=== PATIENT | female | born 1980 | race Caucasian/White ===

== ENCOUNTER 2018-12-07 18:20 | Emergency (ER) | payer MEDICAID ==
[2018-12-07] MEDS ORDERED: Aspirin 81 MG Tab.Chew PO ONE (18:22)
[2018-12-07] MEDS ORDERED: Sodium Chloride 0.9% 10 ML Syringe FLUSH PRN (18:22)
[2018-12-07] MEDS ORDERED: Sodium Chloride 0.9% 2.5 ML Syringe FLUSH PRN (18:22)
[2018-12-07] MEDS ORDERED: Ketorolac 30 MG/ML SDV IVPUSH ONE (18:26)
--- NOTE | 2018-12-07 18:29 | EDM.PDOC ---
ED HPI GENERAL MEDICAL PROBLEM - General Chief Complaint: Chest Pain Stated Complaint: CHEST PAIN Time Seen by Provider: 12/07/18 18:22 Source of Information: Reports: Patient History Limitations: Reports: No Limitations - History of Present Illness INITIAL COMMENTS - FREE TEXT/NARRATIVE: HISTORY AND PHYSICAL: History of present illness: Patient is a 38-year-old female who presents to the emergency room today with complaints of chest pain which started Sunday morning. She states for the past one week she has been coughing and recently was placed on Augmentin and dexamethasone for bronchitis. She is currently still taking these medications. Sunday morning she started to have some chest pain which was exacerbated with movement and coughing. Over the past 24 hours that has progressively gotten worse and more painful. Patient denies any fever, chills, headache, change in vision, syncope or near syncope. Denies any back pain or shortness of breath. Denies any abdominal pain, nausea, vomiting, diarrhea, constipation or dysuria. Has not noted any blood in urine or stool. Patient has been eating and drinking appropriately. Review of systems: As per history of present illness and below otherwise all systems reviewed and negative. Past medical history: As per history of present illness and as reviewed below otherwise noncontributory. Surgical history: As per history of present illness and as reviewed below otherwise noncontributory. Social history: See social history for further information Family history: As per history of present illness and as reviewed below otherwise noncontributory. Physical exam: General: Well-developed and well-nourished 38-year-old female. Alert and oriented. Nontoxic appearing and in no acute distress. HEENT: Atraumatic, normocephalic, pupils equal and reactive bilaterally, negative for conjunctival pallor or scleral icterus, mucous membranes moist, trachea midline. No drooling or trismus noted. No meningeal signs. No hot potato voice noted. Lungs: Clear to auscultation, breath sounds equal bilaterally, mildly tenderness with palpation to the mid sternum/anterior chest Heart: S1S2, regular rate and rhythm without overt murmur Abdomen: Soft, nondistended, nontender. Negative for masses or hepatosplenomegaly. Negative for costovertebral tenderness. Skin: Intact, warm, dry. No lesions or rashes noted. Extremities: Atraumatic, moves all extremities per self without difficulty or deficits, negative for cords or calf pain. Neurovascular unremarkable. Neuro: Awake, alert, oriented. Cranial nerves II through XII unremarkable. Cerebellum unremarkable. Motor and sensory unremarkable throughout. Exam nonfocal. Notes: Patient reports that she does have improvement after the Toradol IV. Vital signs remain stable. EKG shows a normal sinus rhythm with a rate of 81. Patient does have a leukocytosis with UTI. She is currently on any oral steroid of the past couple days. Other than her complaint of cough she has no other systemic complaints or concerns today. The urinary tract infection was an incidental finding. We'll give her a dose of Rocephin while here. Supportive care measures were reviewed and discussed. Voices understanding and is agreeable to plan of care. Denies any further questions or concerns at this time. Diagnostics: CBC, CMP, EKG, one view chest, troponin, UA, urine Therapeutics: Aspirin, Toradol Prescription: Phenergan with codeine (#4oz) Impression: Chest pain, atypical UTI Plan: 1. Continue taking your medications as prescribed. 2. Phenergan with codeine as needed for cough. This medication may cause drowsiness a do not take it will driving her needing to be functioning outside of the house. I would take Aleve or ibuprofen routinely over the next few days. Please take this medication with food as it can cause stomach upset. 3. Follow-up with your primary care provider as we discussed. Return to the ED as needed and as discussed. Definitive disposition and diagnosis as appropriate pending reevaluation and review of above. Chest Pain Score (Numeric/FACES): 9 - Related Data Allergies Allergy/AdvReac Type Severity Reaction Status Date / Time Sulfa (Sulfonamide Allergy Rash Verified 12/07/18 18:27 Antibiotics) Home Meds: Home Meds Amoxicillin/Clavulanate K [Augmentin 875-125 MG] 1 tab PO DAILY 12/07/18 [ History] dexAMETHasone [Dexamethasone] 4 mg PO DAILY 12/07/18 [History] ED ROS GENERAL - Review of Systems Review Of Systems: ROS reveals no pertinent complaints other than HPI. ED EXAM, GENERAL - Physical Exam Exam: See Below (See dictation) Course - Vital Signs Last Recorded V/S: Last Vital Signs Temp 98.2 F 12/07/18 18:28 Pulse 92 12/07/18 18:28 Resp 18 12/07/18 18:28 BP 154/94 H 12/07/18 18:28 Pulse Ox 95 12/07/18 18:28 - Orders/Labs/Meds Orders: Active Orders 24 hr Category Date Time Status EKG Documentation Completion [RC] STAT Care 12/07/18 18:22 Active CULTURE URINE [RM] Stat Lab 12/07/18 18:35 Received Sodium Chloride 0.9% [Saline Flush] Med 12/07/18 18:22 Active 10 ml FLUSH ASDIRECTED PRN Sodium Chloride 0.9% [Saline Flush] Med 12/07/18 18:22 Active 2.5 ml FLUSH ASDIRECTED PRN Saline Lock Insert [OM.PC] Stat Oth 12/07/18 18:22 Ordered Medication Orders Sodium Chloride (Saline Flush) 10 ml FLUSH ASDIRECTED PRN PRN Reason: Keep Vein Open Last Admin: 12/07/18 18:58 Dose: 10 ml Sodium Chloride (Saline Flush) 2.5 ml FLUSH ASDIRECTED PRN PRN Reason: Keep Vein Open Last Admin: 12/07/18 18:58 Dose: 2.5 ml Labs: Laboratory Tests 12/07/18 12/07/18 12/07/18 Range/Units 18:05 18:25 18:35 WBC 24.08 H (4.0-11.0) K/uL RBC 5.11 (4.30-5.90) M/uL Hgb 15.3 (12.0-16.0) g/dL Hct 45.6 (36.0-46.0) % MCV 89.2 (80.0-98.0) fL MCH 29.9 (27.0-32.0) pg MCHC 33.6 (31.0-37.0) g/dL RDW Std Deviation 45.1 (28.0-62.0) fl RDW Coeff of Lindy 14 (11.0-15.0) % Plt Count 426 H (150-400) K/uL MPV 11.20 (7.40-12.00) fL Neut % (Auto) 86.3 H (48.0-80.0) % Lymph % (Auto) 7.8 L (16.0-40.0) % [place] % (Auto) 5.6 (0.0-15.0) % Eos % (Auto) 0.2 (0.0-7.0) % Baso % (Auto) 0.1 (0.0-1.5) % Neut # (Auto) 20.8 H (1.4-5.7) K/uL Lymph # (Auto) 1.9 (0.6-2.4) K/uL [place] # (Auto) 1.3 H (0.0-0.8) K/uL Eos # (Auto) 0.1 (0.0-0.7) K/uL Baso # (Auto) 0.0 (0.0-0.1) K/uL Nucleated RBC % 0.0 /100WBC Nucleated RBCs # 0 K/uL Sodium 139 (136-145) mmol/L Potassium 4.1 (3.5-5.1) mmol/L Chloride 104 (98-107) mmol/L Carbon Dioxide 25.4 (21.0-32.0) mmol/L BUN 18 (7.0-18.0) mg/dL Creatinine 0.7 (0.6-1.0) mg/dL Est Cr Clr Drug Dosing 101.01 mL/min Estimated GFR (MDRD) > 60.0 ml/min Glucose 137 H (74-106) mg/dL Calcium 9.4 (8.5-10.1) mg/dL Total Bilirubin 0.5 (0.2-1.0) mg/dL AST 32 (15-37) IU/L ALT 51 (14-63) IU/L Alkaline Phosphatase 64 (46-116) U/L Troponin I < 0.050 (0.000-0.056) ng/mL Total Protein 7.6 (6.4-8.2) g/dL Albumin 3.9 (3.4-5.0) g/dL Globulin 3.7 (2.6-4.0) g/dL Albumin/Globulin Ratio 1.1 (0.9-1.6) Urine Color YELLOW Urine Appearance CLEAR Urine pH 6.0 (5.0-8.0) Ur Specific [place] 1.025 (1.001-1.035) Urine Protein NEGATIVE (NEGATIVE) mg/dL Urine Glucose (UA) NEGATIVE (NEGATIVE) mg/dL Urine Ketones NEGATIVE (NEGATIVE) mg/dL Urine Occult Blood MODERATE H (NEGATIVE) Urine Nitrite NEGATIVE (NEGATIVE) Urine Bilirubin SMALL H (NEGATIVE) Urine Ictotest NEGATIVE Urine Urobilinogen 1.0 (<2.0) EU/dL Ur Leukocyte Esterase SMALL H (NEGATIVE) Urine RBC 2-3 (0-2/HPF) Urine WBC 8-10 (0-5/HPF) Ur Epithelial Cells MODERATE (NONE-FEW) Urine Bacteria 1+ H (NEGATIVE) Urine HCG, Qual (NEGATIVE) 12/07/18 Range/Units 18:35 WBC (4.0-11.0) K/uL RBC (4.30-5.90) M/uL Hgb (12.0-16.0) g/dL Hct (36.0-46.0) % MCV (80.0-98.0) fL MCH (27.0-32.0) pg MCHC (31.0-37.0) g/dL RDW Std Deviation (28.0-62.0) fl RDW Coeff of Lindy (11.0-15.0) % Plt Count (150-400) K/uL MPV (7.40-12.00) fL Neut % (Auto) (48.0-80.0) % Lymph % (Auto) (16.0-40.0) % [place] % (Auto) (0.0-15.0) % Eos % (Auto) (0.0-7.0) % Baso % (Auto) (0.0-1.5) % Neut # (Auto) (1.4-5.7) K/uL Lymph # (Auto) (0.6-2.4) K/uL [place] # (Auto) (0.0-0.8) K/uL Eos # (Auto) (0.0-0.7) K/uL Baso # (Auto) (0.0-0.1) K/uL Nucleated RBC % /100WBC Nucleated RBCs # K/uL Sodium (136-145) mmol/L Potassium (3.5-5.1) mmol/L Chloride (98-107) mmol/L Carbon Dioxide (21.0-32.0) mmol/L BUN (7.0-18.0) mg/dL Creatinine (0.6-1.0) mg/dL Est Cr Clr Drug Dosing mL/min Estimated GFR (MDRD) ml/min Glucose (74-106) mg/dL Calcium (8.5-10.1) mg/dL Total Bilirubin (0.2-1.0) mg/dL AST (15-37) IU/L ALT (14-63) IU/L Alkaline Phosphatase (46-116) U/L Troponin I (0.000-0.056) ng/mL Total Protein (6.4-8.2) g/dL Albumin (3.4-5.0) g/dL Globulin (2.6-4.0) g/dL Albumin/Globulin Ratio (0.9-1.6) Urine Color Urine Appearance Urine pH (5.0-8.0) Ur Specific [place] (1.001-1.035) Urine Protein (NEGATIVE) mg/dL Urine Glucose (UA) (NEGATIVE) mg/dL Urine Ketones (NEGATIVE) mg/dL Urine Occult Blood (NEGATIVE) Urine Nitrite (NEGATIVE) Urine Bilirubin (NEGATIVE) Urine Ictotest Urine Urobilinogen (<2.0) EU/dL Ur Leukocyte Esterase (NEGATIVE) Urine RBC (0-2/HPF) Urine WBC (0-5/HPF) Ur Epithelial Cells (NONE-FEW) Urine Bacteria (NEGATIVE) Urine HCG, Qual NEGATIVE (NEGATIVE) Meds: Medications Generic Name Dose Route Start Last Admin Trade Name Frehossein PRN Reason Stop Dose Admin Sodium Chloride 10 ml 12/07/18 18:22 12/07/18 18:58 Saline Flush FLUSH 10 ml ASDIRECTED PRN Administration Keep Vein Open Sodium Chloride 2.5 ml 12/07/18 18:22 12/07/18 18:58 Saline Flush FLUSH 2.5 ml ASDIRECTED PRN Administration Keep Vein Open Discontinued Medications Generic Name Dose Route Start Last Admin Trade Name Freq PRN Reason Stop Dose Admin Aspirin 324 mg 12/07/18 18:22 12/07/18 18:54 Aspirin PO 12/07/18 18:23 324 mg ONETIME ONE Administration Ceftriaxone Sodium/Dextrose 1 50 mls @ 100 mls/hr 12/07/18 19:49 12/07/18 20: 00 gm/ Premix IV 12/07/18 20:18 100 mls/hr ONETIME ONE Administration Ketorolac Tromethamine 30 mg 12/07/18 18:26 12/07/18 18:56 Toradol IVPUSH 12/07/18 18:27 30 mg ONETIME ONE Administration Promethazine HCl/Codeine 5 ml 12/07/18 19:51 12/07/18 20:07 Phenergan With Codeine PO 12/07/18 19:52 5 ml NOW STA Administration Departure - Departure Time of Disposition: 19:52 Disposition: Home, Self-Care 01 Clinical Impression: Chest pain Qualifiers: Chest pain type: unspecified Qualified Code(s): R07.9 - Chest pain, unspecified UTI (urinary tract infection) Qualifiers: Urinary tract infection type: acute cystitis Hematuria presence: with hematuria Qualified Code(s): N30.01 - Acute cystitis with hematuria Instructions: Nonspecific Chest Pain, [id number] Referrals: PCP,Unknown [Primary Care Provider] - Forms: ED Department Discharge Additional Instructions: The following information is given to patients seen in the emergency department who are being discharged to home. This information is to outline your options for follow-up care. We provide all patients seen in our emergency department with a follow-up referral. The need for follow-up, as well as the timing and circumstances, are variable depending upon the specifics of your emergency department visit. If you don't have a primary care physician on staff, we will provide you with a referral. We always advise you to contact your personal physician following an emergency department visit to inform them of the circumstance of the visit and for follow-up with them and/or the need for any referrals to a consulting specialist. The emergency department will also refer you to a specialist when appropriate. This referral assures that you have the opportunity for follow-up care with a specialist. All of these measure are taken in an effort to provide you with optimal care, which includes your follow-up. Under all circumstances we always encourage you to contact your private physician who remains a resource for coordinating your care. When calling for follow-up care, please make the office aware that this follow-up is from your recent emergency room visit. If for any reason you are refused follow-up, please contact the [facility] Emergency Department at and asked to speak to the emergency department charge nurse. [facility] Primary Care [address] [place] [id number] [facility] [address] [place] [address] 1. Continue taking your medications as prescribed. 2. Phenergan with codeine as needed for cough. This medication may cause drowsiness a do not take it will driving her needing to be functioning outside of the house. I would take Aleve or ibuprofen routinely over the next few days. Please take this medication with food as it can cause stomach upset. 3. Follow-up with your primary care provider as we discussed. Return to the ED as needed and as discussed. - My Orders Last 24 Hours: My Active Orders 12/07/18 18:22 EKG Documentation Completion [RC] STAT Sodium Chloride 0.9% [Saline Flush] 10 ml FLUSH ASDIRECTED PRN Sodium Chloride 0.9% [Saline Flush] 2.5 ml FLUSH ASDIRECTED PRN Saline Lock Insert [OM.PC] Stat 12/07/18 18:35 CULTURE URINE [RM] Stat - Assessment/Plan Last 24 Hours: My Active Orders 12/07/18 18:22 EKG Documentation Completion [RC] STAT Sodium Chloride 0.9% [Saline Flush] 10 ml FLUSH ASDIRECTED PRN Sodium Chloride 0.9% [Saline Flush] 2.5 ml FLUSH ASDIRECTED PRN Saline Lock Insert [OM.PC] Stat 12/07/18 18:35 CULTURE URINE [RM] Stat
[2018-12-07 19:01] LABS: CHLORIDE,CL 104 mmol/L (98-107); SODIUM,NA 139 mmol/L (136-145)
--- NOTE | 2018-12-07 19:20 | CR ---
INDICATION: Chest pain COMPARISON: None available. FINDINGS: An erect single view of the chest was obtained at 1845 hours. The lungs are clear. No focal or diffuse infiltrates are present. The heart is normal in size. The mediastinum is normal in appearance. The osseous structures are normal in appearance for the patient`s age. IMPRESSION: Normal chest single view. Dictated by Solo Levy MD @ Dec 07 2018 7:18PM Signed by Dr. Solo Levy @ Dec 07 2018 7:19PM
[2018-12-07] MEDS ORDERED: cefTRIAXone 1 GM in Premix Bag 1 BAG IV ONE (19:49)
[2018-12-07] MEDS ORDERED: Codeine/Promethazine 10-6.25 MG/5 ML Syrup 5 ML UD Cup PO STA (19:51)
== END 2018-12-07 20:34 | disposition home or self-care (01) ==
LOC: MW.ED 18:20
DX: R07.89 Other chest pain (principal); N30.01 Acute cystitis with hematuria; Z88.2 Allergy status to sulfonamides
CPT/HCPCS: 71045; 80053; 81001; 81025; 84484; 85025; 87086; 93005; 96365; 96375; 99285; A4217; A9270; J0696; J1885

== ENCOUNTER 2019-05-19 02:26 | Emergency (ER) | payer MEDICAID ==
--- NOTE | 2019-05-19 03:48 | EDM.PDOC ---
ED HPI GENERAL MEDICAL PROBLEM - General Chief Complaint: Abdominal Pain Stated Complaint: RIGHT SIDE PAIN- RADIATING TO BACK Time Seen by Provider: 05/19/19 03:19 Source of Information: Reports: Patient, RN Notes Reviewed History Limitations: Reports: No Limitations - History of Present Illness INITIAL COMMENTS - FREE TEXT/NARRATIVE: -38 year-old female presents with right upper quadrant pain after eating at [employer]. No fever chills. Patient has no urinary symptoms. Patient has no chest pain or shortness of breath Onset: Today Duration: Getting Worse Location: Reports: Abdomen Severity: Moderate Improves with: Reports: None Worsens with: Reports: None Associated Symptoms: Reports: No Other Symptoms Abdomen Pain Score (Numeric/FACES): 10 - Related Data Allergies Allergy/AdvReac Type Severity Reaction Status Date / Time Sulfa (Sulfonamide Allergy Rash Verified 05/19/19 02:38 Antibiotics) Home Meds: Home Meds Ketorolac [Toradol] 10 mg PO TID PRN 05/19/19 [History] Rizatriptan Benzoate [Rizatriptan] 10 mg PO DAILY 05/19/19 [History] Past Medical History HEENT History: Reports: None Cardiovascular History: Reports: None Respiratory History: Reports: None Gastrointestinal History: Reports: None Genitourinary History: Reports: Renal Calculus 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: Musculoskeletal History: Reports: None Neurological History: Reports: None Psychiatric History: Reports: Depression Endocrine/Metabolic History: Reports: None 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 Pump 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 Hematologic History: Reports: None Immunologic History: Reports: None Oncologic (Cancer) History: Reports: None Dermatologic History: Reports: None - Infectious Disease History Infectious Disease History: Reports: None - Past Surgical History Head Surgeries/Procedures: Reports: None Social & Family History - Family History Family Medical History: Noncontributory - Tobacco Use Smoking Status *Q: Never Smoker - Caffeine Use Caffeine Use: Reports: Coffee, Soda - Recreational Drug Use Recreational Drug Use: No ED ROS GENERAL - Review of Systems Review Of Systems: Comprehensive ROS is negative, except as noted in HPI. Constitutional: Reports: No Symptoms HEENT: Reports: No Symptoms Respiratory: Reports: No Symptoms Cardiovascular: Reports: No Symptoms Endocrine: Reports: No Symptoms GI/Abdominal: Reports: Abdominal Pain, Nausea : Reports: No Symptoms Musculoskeletal: Reports: No Symptoms Skin: Reports: No Symptoms Neurological: Reports: No Symptoms Psychiatric: Reports: No Symptoms Hematologic/Lymphatic: Reports: No Symptoms Immunologic: Reports: No Symptoms ED EXAM, GI/ABD - Physical Exam Exam: See Below Text/Narrative:: This 38-year-old female presents to the emergency room after eating a fatty meal at [employer]. Exam is mainly located in the abdomen patient has right upper quadrant on palpation pain No evidence of rebound. Has no Nance sign at this point flank pain Patient's cardiac and respiratory system are negative Exam Limited By: No Limitations General Appearance: Alert, WD/WN, No Apparent Distress Eyes: Bilateral: Normal Appearance, EOMI Ears: Normal External Exam, Normal Canal, Hearing Grossly Normal, Normal TMs Nose: Normal Inspection, Normal Mucosa, No Blood Throat/Mouth: Normal Inspection, Normal Lips, Normal Teeth, Normal Gums, Normal Oropharynx, Normal Voice Head: Atraumatic, Normocephalic Neck: Normal Inspection, Supple, Non-Tender, Full Range of Motion Respiratory/Chest: No Respiratory Distress, Lungs Clear, Normal Breath Sounds, No Accessory Muscle Use, Chest Non-Tender Cardiovascular: Normal Peripheral Pulses, Regular Rate, Rhythm, No Edema, No Gallop, No JVD, No Murmur, No Rub GI/Abdominal Exam: Normal Bowel Sounds, Soft, Non-Tender, No Organomegaly, No Distention, No Abnormal Bruit, No Mass (Female) Exam: Deferred Rectal (Female) Exam: Deferred Back Exam: Normal Inspection, Full Range of Motion Extremities: Normal Inspection, Normal Range of Motion, No Pedal Edema, Normal Capillary Refill Neurological: Alert, Oriented, CN II-XII Intact, Normal Cognition, Normal Reflexes, No Motor/Sensory Deficits Psychiatric: Normal Affect, Normal Mood Skin Exam: Warm, Dry, Intact, Normal Color, No Rash Lymphatic: No Adenopathy Course - Vital Signs Last Recorded V/S: Last Vital Signs Temp 97.9 F 05/19/19 02:35 Pulse 73 05/19/19 02:35 Resp 18 05/19/19 02:35 BP 151/62 H 05/19/19 02:35 Pulse Ox 98 05/19/19 02:35 - Orders/Labs/Meds Orders: Active Orders 24 hr Category Date Time Status CULTURE URINE [RM] Stat Lab 05/19/19 02:35 Received Labs: Laboratory Tests 05/19/19 05/19/19 05/19/19 Range/Units 02:35 02:35 03:55 WBC 9.09 (4.0-11.0) K/uL RBC 4.37 (4.30-5.90) M/uL Hgb 13.1 (12.0-16.0) g/dL Hct 39.5 (36.0-46.0) % MCV 90.4 (80.0-98.0) fL MCH 30.0 (27.0-32.0) pg MCHC 33.2 (31.0-37.0) g/dL RDW Std Deviation 44.5 (28.0-62.0) fl RDW Coeff of Lindy 14 (11.0-15.0) % Plt Count 328 (150-400) K/uL MPV 10.60 (7.40-12.00) fL Neut % (Auto) 61.4 (48.0-80.0) % Lymph % (Auto) 25.2 (16.0-40.0) % [place] % (Auto) 7.7 (0.0-15.0) % Eos % (Auto) 5.1 (0.0-7.0) % Baso % (Auto) 0.6 (0.0-1.5) % Neut # (Auto) 5.6 (1.4-5.7) K/uL Lymph # (Auto) 2.3 (0.6-2.4) K/uL [place] # (Auto) 0.7 (0.0-0.8) K/uL Eos # (Auto) 0.5 (0.0-0.7) K/uL Baso # (Auto) 0.1 (0.0-0.1) K/uL Nucleated RBC % 0.0 /100WBC Nucleated RBCs # 0 K/uL Sodium (136-145) mmol/L Potassium (3.5-5.1) mmol/L Chloride (98-107) mmol/L Carbon Dioxide (21.0-32.0) mmol/L BUN (7.0-18.0) mg/dL Creatinine (0.6-1.0) mg/dL Est Cr Clr Drug Dosing mL/min Estimated GFR (MDRD) ml/min Glucose (74-106) mg/dL Calcium (8.5-10.1) mg/dL Total Bilirubin (0.2-1.0) mg/dL AST (15-37) IU/L ALT (14-63) IU/L Alkaline Phosphatase (46-116) U/L Total Protein (6.4-8.2) g/dL Albumin (3.4-5.0) g/dL Globulin (2.6-4.0) g/dL Albumin/Globulin Ratio (0.9-1.6) Lipase (73-393) U/L Urine Color YELLOW Urine Appearance SLT CLOUDY Urine pH 7.5 (5.0-8.0) Ur Specific [place] 1.020 (1.001-1.035) Urine Protein NEGATIVE (NEGATIVE) mg/dL Urine Glucose (UA) NEGATIVE (NEGATIVE) mg/dL Urine Ketones NEGATIVE (NEGATIVE) mg/dL Urine Occult Blood NEGATIVE (NEGATIVE) Urine Nitrite NEGATIVE (NEGATIVE) Urine Bilirubin NEGATIVE (NEGATIVE) Urine Urobilinogen 0.2 (<2.0) EU/dL Ur Leukocyte Esterase TRACE H (NEGATIVE) Urine RBC 1-2 (0-2/HPF) Urine WBC 2-5 (0-5/HPF) Ur Epithelial Cells MANY (NONE-FEW) Amorphous Sediment MODERATE (NEGATIVE) Urine Bacteria FEW (NEGATIVE) Urine Mucus LIGHT (NONE-MOD) Urine HCG, Qual NEGATIVE (NEGATIVE) 05/19/19 Range/Units 03:55 WBC (4.0-11.0) K/uL RBC (4.30-5.90) M/uL Hgb (12.0-16.0) g/dL Hct (36.0-46.0) % MCV (80.0-98.0) fL MCH (27.0-32.0) pg MCHC (31.0-37.0) g/dL RDW Std Deviation (28.0-62.0) fl RDW Coeff of Lindy (11.0-15.0) % Plt Count (150-400) K/uL MPV (7.40-12.00) fL Neut % (Auto) (48.0-80.0) % Lymph % (Auto) (16.0-40.0) % [place] % (Auto) (0.0-15.0) % Eos % (Auto) (0.0-7.0) % Baso % (Auto) (0.0-1.5) % Neut # (Auto) (1.4-5.7) K/uL Lymph # (Auto) (0.6-2.4) K/uL [place] # (Auto) (0.0-0.8) K/uL Eos # (Auto) (0.0-0.7) K/uL Baso # (Auto) (0.0-0.1) K/uL Nucleated RBC % /100WBC Nucleated RBCs # K/uL Sodium 142 (136-145) mmol/L Potassium 4.5 (3.5-5.1) mmol/L Chloride 108 H (98-107) mmol/L Carbon Dioxide 27.2 (21.0-32.0) mmol/L BUN 15 (7.0-18.0) mg/dL Creatinine 0.8 (0.6-1.0) mg/dL Est Cr Clr Drug Dosing 81.53 mL/min Estimated GFR (MDRD) > 60.0 ml/min Glucose 101 (74-106) mg/dL Calcium 8.3 L (8.5-10.1) mg/dL Total Bilirubin 0.2 (0.2-1.0) mg/dL AST 10 L (15-37) IU/L ALT 16 (14-63) IU/L Alkaline Phosphatase 41 L (46-116) U/L Total Protein 6.6 (6.4-8.2) g/dL Albumin 3.3 L (3.4-5.0) g/dL Globulin 3.3 (2.6-4.0) g/dL Albumin/Globulin Ratio 1.0 (0.9-1.6) Lipase 97 (73-393) U/L Urine Color Urine Appearance Urine pH (5.0-8.0) Ur Specific [place] (1.001-1.035) Urine Protein (NEGATIVE) mg/dL Urine Glucose (UA) (NEGATIVE) mg/dL Urine Ketones (NEGATIVE) mg/dL Urine Occult Blood (NEGATIVE) Urine Nitrite (NEGATIVE) Urine Bilirubin (NEGATIVE) Urine Urobilinogen (<2.0) EU/dL Ur Leukocyte Esterase (NEGATIVE) Urine RBC (0-2/HPF) Urine WBC (0-5/HPF) Ur Epithelial Cells (NONE-FEW) Amorphous Sediment (NEGATIVE) Urine Bacteria (NEGATIVE) Urine Mucus (NONE-MOD) Urine HCG, Qual (NEGATIVE) Meds: Medications Discontinued Medications Generic Name Dose Route Start Last Admin Trade Name Sandoval PRN Reason Stop Dose Admin Sodium Chloride 1,000 mls @ 1,000 mls/hr 05/19/19 03:49 05/19/19 03:58 Normal Saline IV 05/19/19 04:48 1,000 mls/hr .Bolus ONE Administration Morphine Sulfate 4 mg 05/19/19 03:51 05/19/19 04:02 Morphine IVPUSH 05/19/19 03:52 4 mg ONETIME ONE Administration Ondansetron HCl 4 mg 05/19/19 03:52 05/19/19 04:01 Zofran IVPUSH 05/19/19 03:53 4 mg ONETIME ONE Administration Departure - Departure Time of Disposition: 05:13 Disposition: Home, Self-Care 01 Condition: Good Clinical Impression: Gastroenteritis - Discharge Information Instructions: Viral Gastroenteritis, Adult Referrals: Ivett Teixeira MD [Primary Care Provider] - Forms: ED Department Discharge Sepsis Event Note - Evaluation Sepsis Screening Result: No Definite Risk - Focused Exam Vital Signs: Vital Signs Temp Pulse Resp BP Pulse Ox 05/19/19 02:35 97.9 F 73 18 151/62 H 98 Date Exam was Performed: 05/19/19 Time Exam was Performed: 05:13 - My Orders Last 24 Hours: My Active Orders 05/19/19 02:35 CULTURE URINE [RM] Stat - Assessment/Plan Last 24 Hours: My Active Orders 05/19/19 02:35 CULTURE URINE [RM] Stat
[2019-05-19] MEDS: Sodium Chloride 0.9% 1,000 ML IV ONE (03:58)
[2019-05-19] MEDS: Ondansetron 4 MG/2 ML SDV IVPUSH ONE (04:01)
[2019-05-19] MEDS: Morphine 4 MG/ML Syringe IVPUSH ONE (04:02)
[2019-05-19 04:22] LABS: BLOOD UREA NITROGEN,BUN 15 mg/dL (7.0-18.0); CARBON DIOXIDE,CO2 27.2 mmol/L (21.0-32.0); CHLORIDE,CL 108 mmol/L (98-107); GLUCOSE RANDOM 101 mg/dL (74-106); LIPASE 97 U/L (73-393); POTASSIUM,K 4.5 mmol/L (3.5-5.1); SODIUM,NA 142 mmol/L (136-145)
--- NOTE | 2019-05-19 05:04 | CT ---
INDICATION: Right upper quadrant abdominal pain TECHNIQUE: CT abdomen and pelvis without contrast. COMPARISON: None. FINDINGS: Lower chest: Unremarkable. Liver: Normal in size and attenuation. No masses. Gallbladder and bile ducts: No stones or inflammation. No biliary dilatation. Pancreas: Unremarkable. No mass or inflammation. Spleen: Normal in size. No masses. Adrenal glands: Normal in size. No nodules. Kidneys: Normal in size. No masses, stones, or hydronephrosis. GI tract: No dilated loops of large or small intestine. [id number] amount of stool within the colon. Appendix partially seen and appears unremarkable. Vasculature: Unremarkable. Pelvis: Unremarkable. No pelvic masses. Bones: Unremarkable for age. IMPRESSION: Unremarkable noncontrast CT scan abdomen and pelvis. No nephrolithiasis or hydronephrosis. No dilated loops of large or small intestine. Please note that all CT scans at this facility use dose modulation, iterative reconstruction, and/or weight-based dosing when appropriate to reduce radiation dose to as low as reasonably achievable. Dictated by Suhail Arellano MD @ May 19 2019 4:55AM Signed by Dr. Suhail Arellano @ May 19 2019 5:01AM
== END 2019-05-19 05:25 | disposition home or self-care (01) ==
LOC: MW.ED 02:26
DX: K52.9 Noninfective gastroenteritis and colitis, unspecified (principal); Z79.899 Other long term (current) drug therapy; Z88.2 Allergy status to sulfonamides
CPT/HCPCS: 36415; 74176; 80053; 81001; 81025; 83690; 85025; 87086; 96361; 96374; 96375; 99284; J2270; J2405; J7030

== ENCOUNTER 2020-01-05 08:05 | Observation (INO) | payer MEDICAID, OTHER ==
[2020-01-05] MEDS ORDERED: Sodium Chloride 0.9% 1,000 ML IV ONE ×2 (08:38→11:15)
[2020-01-05] MEDS ORDERED: Morphine 4 MG/ML Syringe IVPUSH ONE ×3 (08:38→13:05)
[2020-01-05] MEDS ORDERED: Ondansetron 4 MG/2 ML SDV IVPUSH ONE (08:38)
--- NOTE | 2020-01-05 08:42 | EDM.PDOC ---
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 Patient was in normal state of health this morning and pain started quite suddenly. Pain is rated 10/10 and is diffuse lower abdomen seemingly radiating from middle of abdomen outwards. Associated with roughly 3x non-bloody emesis. Normal BM yesterday, no diarrhea. No past surgical history. No fevers. low3er abd Pain Score (Numeric/FACES): 10 - Related Data Allergies Allergy/AdvReac Type Severity Reaction Status Date / Time Sulfa (Sulfonamide Allergy Rash Verified 01/05/20 08:26 Antibiotics) Home Meds: Home Meds Ketorolac [Toradol] 10 mg PO TID PRN 05/19/19 [History] Rizatriptan Benzoate [Rizatriptan] 10 mg PO DAILY 05/19/19 [History] buPROPion [Wellbutrin] 1 tab PO BEDTIME 01/05/20 [History] Past Medical History HEENT History: Reports: None Cardiovascular History: Reports: None Respiratory History: Reports: None Gastrointestinal History: Reports: None Genitourinary History: Reports: Renal Calculus 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: Musculoskeletal History: Reports: None Neurological History: Reports: None Psychiatric History: Reports: Depression Endocrine/Metabolic History: Reports: None Insulin Pump Model and Cd Reactor Operator: None Hematologic History: Reports: None Immunologic History: Reports: None Oncologic (Cancer) History: Reports: None Dermatologic History: Reports: None - Infectious Disease History Infectious Disease History: Reports: Chicken Pox - Past Surgical History Head Surgeries/Procedures: Reports: None Social & Family History - Family History Family Medical History: Noncontributory - Caffeine Use Caffeine Use: Reports: Coffee, Soda ED ROS GENERAL - Review of Systems Review Of Systems: Comprehensive ROS is negative, except as noted in HPI. ED EXAM, GI/ABD - Physical Exam Exam: See Below Exam Limited By: No Limitations General Appearance: Alert, WD/WN, No Apparent Distress, Other (patient sitting up in bed, does not want to lay flat 2/2 pain) Head: Atraumatic, Normocephalic Respiratory/Chest: No Respiratory Distress, Lungs Clear, Normal Breath Sounds, No Accessory Muscle Use Cardiovascular: Normal Peripheral Pulses, Regular Rate, Rhythm GI/Abdominal Exam: Soft, Other (diffuse abdominal TTP with guarding) Extremities: Normal Inspection Neurological: Alert Psychiatric: Normal Affect, Normal Mood Skin Exam: Warm, Dry Course - Vital Signs Last Recorded V/S: Last Vital Signs Temp 96.7 F L 01/05/20 08:23 Pulse Resp 20 01/05/20 08:23 BP 123/95 H 01/05/20 08:23 Pulse Ox 99 01/05/20 08:23 - Orders/Labs/Meds Orders: Active Orders 24 hr Category Date Time Status Abdomen Pelvis w Cont [CT] Stat Exams 01/05/20 08:38 Stop Req OB Transvaginal [US] Stat Exams 01/05/20 09:41 Taken CORONAVIRUS COVID-19 PCR PHL Stat Lab 01/05/20 11:25 Ordered INR,PT,PROTHROMBIN TIME [COAG] Stat Lab 01/05/20 11:16 Ordered PTT,PARTIAL THROMBOPLSTIN TIME [COAG] Stat Lab 01/05/20 11:16 Ordered TYPE AND SCREEN [BBK] Stat Lab 01/05/20 11:16 Ordered Sodium Chloride 0.9% [Normal Saline] 1,000 ml Med 01/05/20 11:15 Active IV .Bolus Medication Orders Sodium Chloride (Normal Saline) 1,000 mls @ 999 mls/hr IV .Bolus ONE Stop: 01/05/20 12:15 Last Admin: 01/05/20 11:22 Dose: 999 mls/hr Documented by: ALCON Labs: Laboratory Tests 01/05/20 01/05/20 01/05/20 Range/Units 08:28 08:28 08:29 WBC 9.28 (4.0-11.0) K/uL RBC 4.17 L (4.30-5.90) M/uL Hgb 12.7 (12.0-16.0) g/dL Hct 38.1 (36.0-46.0) % MCV 91.4 (80.0-98.0) fL MCH 30.5 (27.0-32.0) pg MCHC 33.3 (31.0-37.0) g/dL RDW Std Deviation 44.8 (28.0-62.0) fl RDW Coeff of Lindy 14 (11.0-15.0) % Plt Count 300 (150-400) K/uL MPV 10.90 (7.40-12.00) fL Neut % (Auto) 71.5 (48.0-80.0) % Lymph % (Auto) 20.0 (16.0-40.0) % Darke % (Auto) 5.1 (0.0-15.0) % Eos % (Auto) 3.0 (0.0-7.0) % Baso % (Auto) 0.4 (0.0-1.5) % Neut # (Auto) 6.6 H (1.4-5.7) K/uL Lymph # (Auto) 1.9 (0.6-2.4) K/uL Darke # (Auto) 0.5 (0.0-0.8) K/uL Eos # (Auto) 0.3 (0.0-0.7) K/uL Baso # (Auto) 0.0 (0.0-0.1) K/uL Nucleated RBC % 0.0 /100WBC Nucleated RBCs # 0 K/uL Sodium (136-145) mmol/L Potassium (3.5-5.1) mmol/L Chloride (98-107) mmol/L Carbon Dioxide (21.0-32.0) mmol/L BUN (7.0-18.0) mg/dL Creatinine (0.6-1.0) mg/dL Est Cr Clr Drug Dosing mL/min Estimated GFR (MDRD) ml/min Glucose (74-106) mg/dL Calcium (8.5-10.1) mg/dL Total Bilirubin (0.2-1.0) mg/dL AST (15-37) IU/L ALT (14-63) IU/L Alkaline Phosphatase (46-116) U/L Total Protein (6.4-8.2) g/dL Albumin (3.4-5.0) g/dL Globulin (2.6-4.0) g/dL Albumin/Globulin Ratio (0.9-1.6) Lipase (73-393) U/L HCG, Quant mIU/mL Urine Color YELLOW Urine Appearance CLEAR Urine pH 5.5 (5.0-8.0) Ur Specific [place] >= 1.030 (1.001-1.035) Urine Protein NEGATIVE (NEGATIVE) mg/dL Urine Glucose (UA) NEGATIVE (NEGATIVE) mg/dL Urine Ketones NEGATIVE (NEGATIVE) mg/dL Urine Occult Blood MODERATE H (NEGATIVE) Urine Nitrite NEGATIVE (NEGATIVE) Urine Bilirubin NEGATIVE (NEGATIVE) Urine Urobilinogen 0.2 (<2.0) EU/dL Ur Leukocyte Esterase TRACE H (NEGATIVE) Urine RBC 0-3 (0-2/HPF) Urine WBC 4-8 (0-5/HPF) Ur Epithelial Cells FEW (NONE-FEW) Urine Bacteria 1+ H (NEGATIVE) Urine Mucus LIGHT (NONE-MOD) Urine HCG, Qual POSITIVE (NEGATIVE) 01/05/20 01/05/20 Range/Units 08:29 08:29 WBC (4.0-11.0) K/uL RBC (4.30-5.90) M/uL Hgb (12.0-16.0) g/dL Hct (36.0-46.0) % MCV (80.0-98.0) fL MCH (27.0-32.0) pg MCHC (31.0-37.0) g/dL RDW Std Deviation (28.0-62.0) fl RDW Coeff of Lindy (11.0-15.0) % Plt Count (150-400) K/uL MPV (7.40-12.00) fL Neut % (Auto) (48.0-80.0) % Lymph % (Auto) (16.0-40.0) % Darke % (Auto) (0.0-15.0) % Eos % (Auto) (0.0-7.0) % Baso % (Auto) (0.0-1.5) % Neut # (Auto) (1.4-5.7) K/uL Lymph # (Auto) (0.6-2.4) K/uL Darke # (Auto) (0.0-0.8) K/uL Eos # (Auto) (0.0-0.7) K/uL Baso # (Auto) (0.0-0.1) K/uL Nucleated RBC % /100WBC Nucleated RBCs # K/uL Sodium 138 (136-145) mmol/L Potassium 3.9 (3.5-5.1) mmol/L Chloride 104 (98-107) mmol/L Carbon Dioxide 24.0 (21.0-32.0) mmol/L BUN 10 (7.0-18.0) mg/dL Creatinine 0.8 (0.6-1.0) mg/dL Est Cr Clr Drug Dosing 80.72 mL/min Estimated GFR (MDRD) > 60.0 ml/min Glucose 125 H (74-106) mg/dL Calcium 8.0 L (8.5-10.1) mg/dL Total Bilirubin 0.5 (0.2-1.0) mg/dL AST 13 L (15-37) IU/L ALT 20 (14-63) IU/L Alkaline Phosphatase 51 (46-116) U/L Total Protein 6.5 (6.4-8.2) g/dL Albumin 3.5 (3.4-5.0) g/dL Globulin 3.0 (2.6-4.0) g/dL Albumin/Globulin Ratio 1.2 (0.9-1.6) Lipase 47 L (73-393) U/L HCG, Quant 94968.0 mIU/mL Urine Color Urine Appearance Urine pH (5.0-8.0) Ur Specific [place] (1.001-1.035) Urine Protein (NEGATIVE) mg/dL Urine Glucose (UA) (NEGATIVE) mg/dL Urine Ketones (NEGATIVE) mg/dL Urine Occult Blood (NEGATIVE) Urine Nitrite (NEGATIVE) Urine Bilirubin (NEGATIVE) Urine Urobilinogen (<2.0) EU/dL Ur Leukocyte Esterase (NEGATIVE) Urine RBC (0-2/HPF) Urine WBC (0-5/HPF) Ur Epithelial Cells (NONE-FEW) Urine Bacteria (NEGATIVE) Urine Mucus (NONE-MOD) Urine HCG, Qual (NEGATIVE) Meds: Medications Generic Name Dose Route Start Last Admin Trade Name Freq PRN Reason Stop Dose Admin Sodium Chloride 1,000 mls @ 999 mls/hr 01/05/20 11:15 01/05/20 11:22 Normal Saline IV 01/05/20 12:15 999 mls/hr .Bolus ONE Administration Discontinued Medications Generic Name Dose Route Start Last Admin Trade Name Freq PRN Reason Stop Dose Admin Fentanyl 75 mcg 08/17/20 10:11 Fentanyl IVPUSH 01/05/20 10:12 ONETIME ONE Sodium Chloride 1,000 mls @ 999 mls/hr 01/05/20 08:38 01/05/20 08:45 Normal Saline IV 01/05/20 09:38 999 mls/hr .Bolus ONE Administration Morphine Sulfate 4 mg 01/05/20 08:38 01/05/20 08:45 Morphine IVPUSH 01/05/20 08:39 4 mg ONETIME ONE Administration Morphine Sulfate 4 mg 01/05/20 10:12 01/05/20 10:24 Morphine IVPUSH 01/05/20 10:13 4 mg ONETIME ONE Administration Ondansetron HCl 4 mg 01/05/20 08:38 01/05/20 08:45 Zofran IVPUSH 01/05/20 08:39 4 mg ONETIME ONE Administration - Re-Assessments/Exams Free Text/Narrative Re-Assessment/Exam: 01/05/20 08:42 Patient presents with abdominal pain, uncomfortable appearing on exam w/ guarding, will get labs including abdominal CT scan and will treat symptomatically while working up. 01/05/20 09:41 Patient's uPreg is positive; will get a quantitive bhcg and pelvic US. CT scan discontinued. Spoke with patient who did not know about . Notes LMP December 14 although she also had some spotting December 25. She currently does not have any vaginal bleeding. Will f/u US results and disposition accordingly. 01/05/20 11:10 US concerning for ectopic ; OBGYN has been paged 01/05/20 11:17 Dr. Vickers agrees to see patient in ED 01/05/20 11:32 Patient will be admitted to Dr. Vickers for observation; she agrees with plan. Departure - Departure Time of Disposition: 11:32 Disposition: Admitted As Inpatient 65 Condition: Good Clinical Impression: Ectopic Qualifiers: Location of ectopic : unspecified location Intrauterine status: without intrauterine Qualified Code(s): O00.90 - Unspecified ectopic without intrauterine - Discharge Information Referrals: Ivett Teixeira MD [Primary Care Provider] - Forms: ED Department Discharge Sepsis Event Note (ED) - Evaluation Sepsis Screening Result: No Definite Risk - Focused Exam Vital Signs: Vital Signs Temp Resp BP Pulse Ox 01/05/20 08:23 96.7 F L 20 123/95 H 99 - My Orders Last 24 Hours: My Active Orders 01/05/20 08:38 Abdomen Pelvis w Cont [CT] Stat 01/05/20 09:41 OB Transvaginal [US] Stat 01/05/20 11:15 Sodium Chloride 0.9% [Normal Saline] 1,000 ml IV .Bolus 01/05/20 11:16 INR,PT,PROTHROMBIN TIME [COAG] Stat PTT,PARTIAL THROMBOPLSTIN TIME [COAG] Stat TYPE AND SCREEN [BBK] Stat - Assessment/Plan Last 24 Hours: My Active Orders 01/05/20 08:38 Abdomen Pelvis w Cont [CT] Stat 01/05/20 09:41 OB Transvaginal [US] Stat 01/05/20 11:15 Sodium Chloride 0.9% [Normal Saline] 1,000 ml IV .Bolus 01/05/20 11:16 INR,PT,PROTHROMBIN TIME [COAG] Stat PTT,PARTIAL THROMBOPLSTIN TIME [COAG] Stat TYPE AND SCREEN [BBK] Stat
[2020-01-05 09:08] LABS: BLOOD UREA NITROGEN,BUN 10 mg/dL (7.0-18.0); CHLORIDE,CL 104 mmol/L (98-107); GLUCOSE RANDOM 125 mg/dL (74-106); LIPASE 47 U/L (73-393); POTASSIUM,K 3.9 mmol/L (3.5-5.1); SODIUM,NA 138 mmol/L (136-145)
[2020-01-05] MEDS ORDERED: fentaNYL 50 MCG/ML SDV IVPUSH ONE (10:11)
--- NOTE | 2020-01-05 12:42 | US ---
1st trimester obstetrical ultrasound: Multiple real-time images were obtained transabdominally. Comparison: No previous imaging for current . Cystic area is noted to the left of midline which appears to contain a yolk sac. This finding measures 5.7 x 4.7 x 4.8 cm and is highly suspicious for ectopic . No intrauterine gestation is seen. At least 2 uterine fibroids are present measuring 3.2 x 2.2 x 3.1 cm and 1.9 x 2.0 x 2.1 cm. Both ovaries appear within normal limits. Large amount of fluid is seen within the pelvis which is slightly complicated and could represent blood. Impression: 1. Free fluid within the pelvis possibly due to blood. 2. Cystic area within the left adnexa appearing to have a yolk sac highly suspicious for ectopic . 3. At least 2 fibroids within the uterus. 4. No intrauterine gestational sac is seen. Diagnostic code #5 This report was dictated in MDT
[2020-01-05] MEDS ORDERED: LORazepam 2 MG/ML SDV IVPUSH ONE (13:05)
[2020-01-05] MEDS ORDERED: Methotrexate PF 50 MG/2 ML SDV IM ONE (14:15)
[2020-01-05] MEDS: Morphine 4 MG/ML Syringe IVPUSH PRN ×2 (15:24→20:40)
[2020-01-05] MEDS: Ondansetron 4 MG/2 ML SDV IVPUSH PRN ×2 (16:58→20:47)
[2020-01-05] MEDS ORDERED: Lactated Ringers 1,000 ML IV SCH (19:30)
--- NOTE | 2020-01-05 20:22 | PCM.PREANE ---
Preanesthetic Assessment - Anesthesia/Transfusion/Family Hx Anesthesia History: Prior Anesthesia Without Reaction Family History of Anesthesia Reaction: No Transfusion History: No Prior Transfusion(s) - Physical Assessment NPO Status Date: 01/05/20 NPO Status Time: 00:05 Vital Signs: Last Vital Signs Temp 36.6 C 01/05/20 18:28 Pulse 77 01/05/20 18:28 Resp 18 01/05/20 18:28 BP 109/71 01/05/20 18:28 Pulse Ox 98 01/05/20 18:28 Height: 1.63 m Weight: 74.208 kg ASA Class: 2E - Lab Values: Laboratory Last Values WBC 9.28 K/uL (4.0-11.0) 01/05/20 08:29 RBC 4.17 M/uL (4.30-5.90) L 01/05/20 08:29 Hgb 9.4 g/dL (12.0-16.0) L 01/05/20 17:58 Hct 29.0 % (36.0-46.0) L 01/05/20 17:58 MCV 91.4 fL (80.0-98.0) 01/05/20 08:29 MCH 30.5 pg (27.0-32.0) 01/05/20 08:29 MCHC 33.3 g/dL (31.0-37.0) 01/05/20 08:29 RDW Std Deviation 44.8 fl (28.0-62.0) 01/05/20 08:29 RDW Coeff of Lindy 14 % (11.0-15.0) 01/05/20 08:29 Plt Count 300 K/uL (150-400) 01/05/20 08:29 MPV 10.90 fL (7.40-12.00) 01/05/20 08:29 Neut % (Auto) 71.5 % (48.0-80.0) 01/05/20 08:29 Lymph % (Auto) 20.0 % (16.0-40.0) 01/05/20 08:29 [place] % (Auto) 5.1 % (0.0-15.0) 01/05/20 08:29 Eos % (Auto) 3.0 % (0.0-7.0) 01/05/20 08:29 Baso % (Auto) 0.4 % (0.0-1.5) 01/05/20 08:29 Neut # (Auto) 6.6 K/uL (1.4-5.7) H 01/05/20 08:29 Lymph # (Auto) 1.9 K/uL (0.6-2.4) 01/05/20 08:29 [place] # (Auto) 0.5 K/uL (0.0-0.8) 01/05/20 08: Eos # (Auto) 0.3 K/uL (0.0-0.7) 01/05/20 08: Baso # (Auto) 0.0 K/uL (0.0-0.1) 01/05/20 08: Nucleated RBC % 0.0 /100WBC 01/05/20 08: Nucleated RBCs # 0 K/uL 01/05/20 08: INR 1.03 01/05/20 08:29 APTT 22.3 SEC (18.6-31.3) 01/05/20 08:29 Sodium 138 mmol/L (136-145) 01/05/20 08:29 Potassium 3.9 mmol/L (3.5-5.1) 01/05/20 08: Chloride 104 mmol/L (98-107) 01/05/20 08: Carbon Dioxide 24.0 mmol/L (21.0-32.0) 01/05/20 08:29 BUN 10 mg/dL (7.0-18.0) 01/05/20 08: Creatinine 0.8 mg/dL (0.6-1.0) 01/05/20 08:29 Est Cr Clr Drug Dosing 80.72 mL/min 01/05/20 08:29 Estimated GFR (MDRD) > 60.0 ml/min 01/05/20 08:29 Glucose 125 mg/dL (74-106) H 01/05/20 08:29 Calcium 8.0 mg/dL (8.5-10.1) L 01/05/20 08:29 Total Bilirubin 0.5 mg/dL (0.2-1.0) 01/05/20 08:29 AST 13 IU/L (15-37) L 01/05/20 08:29 ALT 20 IU/L (14-63) 01/05/20 08: Alkaline Phosphatase 51 U/L (46-116) 01/05/20 08:29 Total Protein 6.5 g/dL (6.4-8.2) 01/05/20 08: Albumin 3.5 g/dL (3.4-5.0) 01/05/20 08: Globulin 3.0 g/dL (2.6-4.0) 01/05/20 08: Albumin/Globulin Ratio 1.2 (0.9-1.6) 01/05/20 08: Lipase 47 U/L (73-393) L 01/05/20 08: HCG, Quant 49688.0 mIU/mL 01/05/20 08: Urine Color YELLOW 01/05/20 08: Urine Appearance CLEAR 01/05/20 08: Urine pH 5.5 (5.0-8.0) 01/05/20 08:28 Ur Specific [place] >= 1.030 (1.001-1.035) 01/05/20 08:28 Urine Protein NEGATIVE mg/dL (NEGATIVE) 01/05/20 08:28 Urine Glucose (UA) NEGATIVE mg/dL (NEGATIVE) 01/05/20 08:28 Urine Ketones NEGATIVE mg/dL (NEGATIVE) 01/05/20 08:28 Urine Occult Blood MODERATE (NEGATIVE) H 01/05/20 08:28 Urine Nitrite NEGATIVE (NEGATIVE) 01/05/20 08:28 Urine Bilirubin NEGATIVE (NEGATIVE) 01/05/20 08:28 Urine Urobilinogen 0.2 EU/dL (<2.0) 01/05/20 08:28 Ur Leukocyte Esterase TRACE (NEGATIVE) H 01/05/20 08:28 Urine RBC 0-3 (0-2/HPF) 01/05/20 08:28 Urine WBC 4-8 (0-5/HPF) 01/05/20 08:28 Ur Epithelial Cells FEW (NONE-FEW) 01/05/20 08:28 Urine Bacteria 1+ (NEGATIVE) H 01/05/20 08:28 Urine Mucus LIGHT (NONE-MOD) 01/05/20 08:28 Urine HCG, Qual POSITIVE (NEGATIVE) 01/05/20 08:28 COVID-19 (IDA) NEGATIVE (NEGATIVE) 01/05/20 11:34 Blood Type A POSITIVE 01/05/20 11:50 Antibody Screen NEGATIVE 01/05/20 11:50 - Allergies Allergies/Adverse Reactions: Allergies Allergy/AdvReac Type Severity Reaction Status Date / Time Sulfa (Sulfonamide Allergy Rash Verified 01/05/20 14:06 Antibiotics) - Acknowledgements Anesthesia Type Planned: General Anesthesia Pt an Appropriate Candidate for the Planned Anesthesia: Yes Alternatives and Risks of Anesthesia Discussed w Pt/Guardian: Yes Pt/Guardian Understands and Agrees with Anesthesia Plan: Yes PreAnesthesia Questionnaire HEENT History: Reports: None Cardiovascular History: Reports: None Respiratory History: Reports: Asthma, Other (See Below) Other Respiratory History: Asthma with exersion Gastrointestinal History: Reports: None Genitourinary History: Reports: Renal Calculus 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: Musculoskeletal History: Reports: None Neurological History: Reports: None Psychiatric History: Reports: Depression Endocrine/Metabolic History: Reports: None Hematologic History: Reports: None Immunologic History: Reports: None Oncologic (Cancer) History: Reports: None Dermatologic History: Reports: None - Infectious Disease History Infectious Disease History: Reports: Chicken Pox - Past Surgical History Head Surgeries/Procedures: Reports: None - SUBSTANCE USE Smoking Status *Q: Never Smoker Tobacco Use Within Last Twelve Months: No Second Hand Smoke Exposure: No Days Per Week of Alcohol Use: 2 Number of Drinks Per Day: 3 Total Drinks Per Week: 6 Date of Last Drink: 01/04/20 Time of Last Drink: 16:00 Recreational Drug Use History: No - HOME MEDS Home Medications: Home Meds Ketorolac [Toradol] 10 mg PO DAILY PRN 05/19/19 [History] Rizatriptan Benzoate [Rizatriptan] 10 mg PO DAILY PRN 05/19/19 [History] buPROPion HCL [Wellbutrin Xl] 300 mg PO DAILY 01/05/20 [History] buPROPion [Wellbutrin] 1 tab PO BEDTIME 01/05/20 [History] - CURRENT (IN HOUSE) MEDS Current Meds: Current Medications Lactated Ringer's (Ringers, Lactated) 1,000 mls @ 150 mls/hr IV ASDIRECTED FITZ Last Admin: 01/05/20 19:34 Dose: 150 mls/hr Documented by: Morphine Sulfate (Morphine) 8 mg IVPUSH Q4H PRN PRN Reason: Pain Last Admin: 01/05/20 15:24 Dose: 8 mg Documented by: Ondansetron HCl (Zofran) 4 mg IVPUSH Q4H PRN PRN Reason: Nausea Last Admin: 01/05/20 16:58 Dose: 4 mg Documented by: Discontinued Medications Fentanyl (Fentanyl) 75 mcg IVPUSH ONETIME ONE Stop: 01/05/20 10:12 Last Admin: 01/05/20 15:42 Dose: Not Given Documented by: Sodium Chloride (Normal Saline) 1,000 mls @ 999 mls/hr IV .Bolus ONE Stop: 01/05/20 09:38 Last Admin: 01/05/20 08:45 Dose: 999 mls/hr Documented by: Sodium Chloride (Normal Saline) 1,000 mls @ 999 mls/hr IV .Bolus ONE Stop: 01/05/20 12:15 Last Admin: 01/05/20 11:22 Dose: 999 mls/hr Documented by: Lorazepam (Ativan) 0.5 mg IVPUSH BEDTIME ONE Stop: 01/05/20 13:06 Last Admin: 01/05/20 13:09 Dose: 0.5 mg Documented by: Methotrexate Sodium (Methotrexate Pf) 90 mg IM ONETIME ONE Stop: 01/05/20 14:16 Last Admin: 01/05/20 14:28 Dose: 90 mg Documented by: Morphine Sulfate (Morphine) 4 mg IVPUSH ONETIME ONE Stop: 01/05/20 08:39 Last Admin: 01/05/20 08:45 Dose: 4 mg Documented by: Morphine Sulfate (Morphine) 4 mg IVPUSH ONETIME ONE Stop: 01/05/20 10:13 Last Admin: 01/05/20 10:24 Dose: 4 mg Documented by: Morphine Sulfate (Morphine) 4 mg IVPUSH ONETIME ONE Stop: 01/05/20 13:06 Last Admin: 01/05/20 13:09 Dose: 4 mg Documented by: Ondansetron HCl (Zofran) 4 mg IVPUSH ONETIME ONE Stop: 01/05/20 08:39 Last Admin: 01/05/20 08:45 Dose: 4 mg Documented by:
--- NOTE | 2020-01-06 09:26 | CONS ---
DATE OF CONSULTATION: 01/05/2020 DATE OF : 1980 PRIMARY CARE PHYSICIAN: MARCELINA ACOSTA MD Ms. Taveras is a 39-year-old patient. She is para 4-0-0-4. She is not on any control pills. Her last period was sometime either late October or early November according to her. She has presented to the emergency room with lower abdominal pain. Her test was positive. Her HCG level was 50,000. Ultrasound shows the patient to have ruptured tubal with a hematoperitoneum. She is hemodynamically stable at this time. My plan on the patient is to use methotrexate and do conservative measurement and see if that would work. If does not, then we will probably take her to the OR, and since we cannot do laparoscopy at this time because of our OR situation, then I am planning to a minilaparotomy to treat her tubal . VICENTE / DRAKE /[id number]
== END 2020-01-05 21:15 ==
LOC: MW.ED 08:05 → MW.MS 11:47
PROVIDERS: ADMIT Obstetrics & Gynecology; ATTEND Obstetrics & Gynecology
DX: O00.102 Left tubal pregnancy without intrauterine pregnancy (principal); O99.611 Diseases of the digestive system complicating pregnancy, first trimester; K66.1 Hemoperitoneum; O99.341 Other mental disorders complicating pregnancy, first trimester; F32.9 Major depressive disorder, single episode, unspecified; Z88.2 Allergy status to sulfonamides; Z79.899 Other long term (current) drug therapy; Z20.828 Contact with and (suspected) exposure to other viral communicable diseases
CPT/HCPCS: 36415; 76817; 80053; 81001; 81025; 83690; 84702; 85014; 85018; 85025; 85610; 85730; 86850; 86900; 86901; 86920; 86921; 86922; 87635; 96361; 96372; 96374; 96375; 96376; 99285; G0378; J2060; J2270; J2405; J7030; J7120; J9260; U0002

== ENCOUNTER 2021-07-21 06:41 | Day surgery (SDC) | payer BC, MEDICAID ==
[2021-07-19 11:23] LABS: BLOOD UREA NITROGEN,BUN 10 mg/dL (7.0-18.0); CARBON DIOXIDE,CO2 26.8 mmol/L (21.0-32.0); CHLORIDE,CL 106 mmol/L (98-107); GLUCOSE RANDOM 120 mg/dL (74-106); POTASSIUM,K 4.1 mmol/L (3.5-5.1); SODIUM,NA 142 mmol/L (136-145)
[~2021-07-21 06:41] MED LIST: Sodium Chloride 0.9% 10 ML Syringe FLUSH PRN; Sodium Chloride 0.9% 2.5 ML Syringe FLUSH PRN; Sodium Chloride 0.9% 20 ML SDV IV PRN; ceFAZolin 2 GM in Premix Bag 1 BAG IV ONE
[2021-07-21] MEDS ORDERED: Ondansetron 4 MG/2 ML SDV IVPUSH PRN (06:59)
[2021-07-21] MEDS ORDERED: Naloxone 0.4 MG/ML SDV IVPUSH PRN (06:59)
[2021-07-21] MEDS ORDERED: HYDROmorphone 1 MG/ML Syringe IVPUSH PRN (06:59)
[2021-07-21] MEDS ORDERED: Metoclopramide 10 MG/2 ML SDV IVPUSH PRN (06:59)
[2021-07-21] MEDS ORDERED: fentaNYL 100 MCG/2 ML SDV IVPUSH PRN (06:59)
[2021-07-21] MEDS ORDERED: Albuterol 0.083% 2.5 MG/3 ML Neb Soln NEB PRN (06:59)
[2021-07-21] MEDS: Lactated Ringers 1,000 ML IV SCH ×2 (07:10→15:11)
[2021-07-21] MEDS ORDERED: Fluorescein 5 ML Vial ONE (07:33)
[2021-07-21] MEDS ORDERED: Propofol 200 MG/20 ML SDV ONE (07:37)
[2021-07-21] MEDS ORDERED: Midazolam 1 MG/ML 2 ML SDV ONE (07:37)
[2021-07-21] MEDS ORDERED: Ketamine HCL/NACL, ISO-OSM 50 MG/5 ML Syringe ONE (07:37)
[2021-07-21] MEDS ORDERED: fentaNYL 250 MCG/5 ML SDV ONE (07:37)
[2021-07-21] MEDS ORDERED: Famotidine 20 MG/2 ML SDV ONE (07:43)
[2021-07-21] MEDS ORDERED: Glycopyrrolate 0.2 MG/ML SDV ONE (08:31)
[2021-07-21] MEDS ORDERED: Ondansetron 4 MG/2 ML SDV ONE (08:31)
[2021-07-21] MEDS ORDERED: Rocuronium Bromide 50 MG/5 ML Syringe ONE (08:31)
[2021-07-21] MEDS ORDERED: ePHEDrine 50 MG/ML SDV ONE (08:31)
[2021-07-21] MEDS ORDERED: Ketorolac 30 MG/ML SDV ONE (08:31)
[2021-07-21] MEDS ORDERED: Dexamethasone 4 MG/ML 5 ML MDV ONE (08:31)
[2021-07-21] MEDS ORDERED: Lidocaine 2% Jelly 30 ML Tube ONE (08:31)
[2021-07-21] MEDS ORDERED: Sugammadex Sodium 200 MG/2 ML VIAL ONE (08:31)
[2021-07-21] MEDS ORDERED: fentaNYL 100 MCG/2 ML SDV ONE ×2 (08:32→08:37)
[2021-07-21] MEDS ORDERED: Promethazine 25 MG/ML SDV IM PRN (09:21)
[2021-07-21] MEDS ORDERED: Ketorolac 30 MG/ML SDV IVPUSH ONE (09:21)
[2021-07-21] MEDS ORDERED: Acetaminophen/oxyCODONE 325-5 MG Tab PO PRN ×2 (09:21)
[2021-07-21] MEDS: Morphine 4 MG/ML VIAL IVPUSH PRN ×2 (10:46→14:28)
[2021-07-21] MEDS: Ondansetron 4 MG/2 ML SDV IVPUSH PRN ×2 (10:49→16:55)
[2021-07-21] MEDS ORDERED: HYDROmorphone 2 MG/ML Syringe ONE (12:22)
[2021-07-21] MEDS: Ketorolac 30 MG/ML SDV IVPUSH PRN ×2 (16:57→23:05)
[2021-07-22 07:17] LABS: BLOOD UREA NITROGEN,BUN 8 mg/dL (7.0-18.0); CARBON DIOXIDE,CO2 26.7 mmol/L (21.0-32.0); CHLORIDE,CL 106 mmol/L (98-107); GLUCOSE RANDOM 103 mg/dL (74-106); POTASSIUM,K 4.3 mmol/L (3.5-5.1); SODIUM,NA 142 mmol/L (136-145)
== END 2021-07-22 14:20 | disposition home or self-care (01) ==
LOC: MW.SDS 06:41 → MW.MS 06:41 → MW.SDS 07-22 14:20
PROVIDERS: ATTEND Obstetrics & Gynecology
DX: N80.0 Endometriosis of uterus (principal); N39.3 Stress incontinence (female) (male); J45.909 Unspecified asthma, uncomplicated; G43.909 Migraine, unspecified, not intractable, without status migrainosus; F32.A Depression, unspecified; E66.9 Obesity, unspecified; Z68.30 Body mass index [BMI] 30.0-30.9, adult; F41.9 Anxiety disorder, unspecified; Z88.2 Allergy status to sulfonamides; Z79.899 Other long term (current) drug therapy; Z79.1 Long term (current) use of non-steroidal anti-inflammatories (NSAID)
CPT/HCPCS: 36415; 57288; 58260; 80048; 84703; 85025; 85027; 86850; 86900; 86901; A9270; C1771; J0131; J0690; J1100; J1170; J1885; J2250; J2270; J2405; J2550; J2704; J3010; J3490; J7030; J7120; 00944

== ENCOUNTER 2023-06-04 08:33 | Day surgery (SDC) | payer BC ==
[~2023-06-04 08:33] MED LIST changes: +Lactated Ringers 1,000 ML IV SCH; -Sodium Chloride 0.9% 10 ML Syringe FLUSH PRN; -Sodium Chloride 0.9% 2.5 ML Syringe FLUSH PRN; -Sodium Chloride 0.9% 20 ML SDV IV PRN; -ceFAZolin 2 GM in Premix Bag 1 BAG IV ONE; +cefOXitin 2 GM in Sodium Chloride 0.9% 100 ML IV ONE
[2023-06-04] MEDS ORDERED: ceFAZolin 1 GM Vial ONE (08:54)
[2023-06-04] MEDS ORDERED: Bupivacaine 0.5% 30 ML SDV ONE (08:54)
[2023-06-04] MEDS ORDERED: propofoL 50 ML ONE ×2 (08:59→10:18)
[2023-06-04] MEDS ORDERED: fentaNYL 100 MCG/2 ML SDV ONE (09:00)
[2023-06-04] MEDS ORDERED: Propofol 200 MG/20 ML SDV ONE (09:00)
[2023-06-04] MEDS ORDERED: fentaNYL 50 MCG/ML SDV IVPUSH PRN (09:03)
[2023-06-04] MEDS ORDERED: Morphine 2 MG/ML SYRINGE IVPUSH PRN (09:03)
[2023-06-04] MEDS ORDERED: HYDROmorphone 1 MG/ML Syringe IVPUSH PRN (09:03)
[2023-06-04] MEDS ORDERED: Naloxone 0.4 MG/ML SDV IVPUSH PRN (09:03)
[2023-06-04] MEDS ORDERED: Ondansetron 4 MG/2 ML SDV IVPUSH PRN (09:03)
[2023-06-04] MEDS ORDERED: EPINEPHrine 1 MG/1 ML Amp ONE (09:03)
[2023-06-04] MEDS ORDERED: Ropivacaine 0.5% 5 MG/ML 30 ML SDV ONE (09:03)
[2023-06-04] MEDS ORDERED: droPERidol 5 MG/2 ML SDV IVPUSH PRN (09:03)
[2023-06-04] MEDS ORDERED: Albuterol 0.083% 2.5 MG/3 ML Neb Soln NEB PRN (09:03)
[2023-06-04] MEDS ORDERED: Bupivacaine 0.25% 30 ML SDV ONE (09:03)
[2023-06-04] MEDS ORDERED: Metoclopramide 10 MG/2 ML SDV IVPUSH PRN (09:03)
[2023-06-04] MEDS ORDERED: Rocuronium Bromide 50 MG/5 ML Syringe ONE (09:04)
[2023-06-04] MEDS ORDERED: dexmedeTOMIDine HCl 200 MCG/2 ML SDV ONE (09:04)
[2023-06-04] MEDS ORDERED: Indocyanine Green 25 MG SDV ONE (09:49)
[2023-06-04] MEDS ORDERED: cefOXitin 1 GM Vial ONE (09:49)
[2023-06-04] MEDS ORDERED: Ondansetron 4 MG/2 ML SDV ONE (10:07)
[2023-06-04] MEDS ORDERED: Magnesium Sulfate (4.06 MEQ/ML) 5 GM/10 ML SDV ONE (10:07)
[2023-06-04] MEDS ORDERED: Dexamethasone 4 MG/ML 5 ML MDV ONE (10:07)
[2023-06-04] MEDS ORDERED: Sugammadex Sodium 200 MG/2 ML VIAL ONE (10:29)
[2023-06-04] MEDS ORDERED: Ketorolac 30 MG/ML SDV ONE (10:29)
[2023-06-04] MEDS ORDERED: Morphine 4 MG/ML Syringe IVPUSH PRN (11:08)
[2023-06-04] MEDS ORDERED: Acetaminophen/HYDROcodone 325-5 MG Tab PO PRN (11:08)
[2023-06-04] MEDS ORDERED: Lactated Ringers 1,000 ML IV SCH (11:15)
== END 2023-06-04 13:12 | disposition home or self-care (01) ==
LOC: MW.SDS 08:33
PROVIDERS: ATTEND Surgery
DX: K80.10 Calculus of gallbladder with chronic cholecystitis without obstruction (principal); J45.909 Unspecified asthma, uncomplicated; F32.A Depression, unspecified; G43.909 Migraine, unspecified, not intractable, without status migrainosus; K21.9 Gastro-esophageal reflux disease without esophagitis; E66.3 Overweight; Z68.29 Body mass index [BMI] 29.0-29.9, adult; Z79.899 Other long term (current) drug therapy; Z88.2 Allergy status to sulfonamides
CPT/HCPCS: 47563; 64486; 64488; J0131; J0171; J0665; J0694; J1100; J1885; J2405; J2704; J2795; J3010; J3475; J3490; J7120; 00790; J0690

== ENCOUNTER 2024-03-06 15:11 | Emergency (ER) | payer OTHER, BC | END 2024-03-06 16:49 | disposition home or self-care (01) | LOC: MW.ED 15:11 | DX: M79.631 Pain in right forearm (principal); M79.632 Pain in left forearm; M25.522 Pain in left elbow; K21.9 Gastro-esophageal reflux disease without esophagitis; Z90.49 Acquired absence of other specified parts of digestive tract; Z90.710 Acquired absence of both cervix and uterus; Z79.899 Other long term (current) drug therapy; Z88.2 Allergy status to sulfonamides; Z75.8 Other problems related to medical facilities and other health care; V49.9XXA Car occupant (driver) (passenger) injured in unspecified traffic accident, initial encounter | CPT/HCPCS: 71046; 71046-26; 73080-26-LT; 73080-LT; 730902650; 73090-50; 99283; 99284 ==

== ENCOUNTER 2024-12-03 22:40 | Emergency (ER) | payer BC ==
[2024-12-03] MEDS ORDERED: Sodium Chloride 0.9% 10 ML Syringe FLUSH PRN (23:12)
[2024-12-03] MEDS ORDERED: Sodium Chloride 0.9% 2.5 ML Syringe FLUSH PRN (23:12)
[2024-12-03 23:25] LABS: APPEARANCE,URINE CLOUDY; GLUCOSE,URINE NEGATIVE (NEGATIVE); OCCULT BLOOD,URINE NEGATIVE (NEGATIVE)
[2024-12-03] MEDS: Ondansetron 4 MG/2 ML SDV IVPUSH ONE (23:33)
[2024-12-03] MEDS: Ketorolac 30 MG/ML SDV IVPUSH ONE (23:33)
[2024-12-03 23:38] LABS: EPITHELIAL CELLS,URINE FEW (NONE-FEW)
[2024-12-03 23:42] LABS: BASOPHILS ABSOLUTE AUTO 0.06 K/uL (0.00-0.20); BASOPHILS PERCENT AUTO 0.6 % (0.0-1.0); EOSINOPHILS ABSOLUTE AUTO 0.30 K/uL (0.00-0.45); EOSINOPHILS PERCENT AUTO 3.1 % (0.0-6.0); IMMATURE GRAN ABSOLUTE AUTO 0.04 K/uL (0.00-0.05); IMMATURE GRAN PERCENT AUTO 0.4 % (0.0-0.4); LYMPHOCYTES ABSOLUTE AUTO 1.51 K/uL (1.00-4.80); LYMPHOCYTES PERCENT AUTO 15.7 % (24.0-44.0); MEAN PLATELET VOLUME 10.8 fL (9.4-12.3); MONOCYTES ABSOLUTE AUTO 0.61 K/uL (0.00-0.80); MONOCYTES PERCENT AUTO 6.3 % (0.0-8.0); NEUTROPHILS ABSOLUTE AUTO 7.09 K/uL (1.80-7.70); NEUTROPHILS PERCENT AUTO 73.9 % (41.0-71.0); NRBC ABSOLUTE 0.00 K/uL (0.00-0.02); NRBC PERCENT 0.0 /100WBC (0.0-0.2); PLATELET COUNT,PLT 332 K/uL (150-400); RED BLOOD CELL COUNT 4.96 M/uL (4.10-5.30); WHITE BLOOD CELL COUNT,WBC 9.61 K/uL (3.9-11.3)
[2024-12-04 00:02] LABS: A/G RATIO 1.2 (0.9-1.6); ALANINE AMINOTRANSFERASE,ALT 22.0 IU/L (14-63); ASPARTATE AMNIOTRANSFERASE,AST 12.0 IU/L (15-37); BILIRUBIN TOTAL 0.7 mg/dL (0.2-1.0); BLOOD UREA NITROGEN,BUN 9.0 mg/dL (7.0-18.0); CARBON DIOXIDE,CO2 27.5 mmol/L (21.0-32.0); CHLORIDE,CL 103.0 mmol/L (98-107); CREATININE 1.1 mg/dL (0.6-1.0); EST CRCL DRUG DOSING (CG) 53.43 mL/min; ESTIMATED GFR 63.0 mL/min (>60); GLUCOSE RANDOM 115.0 mg/dL (74-106); POTASSIUM,K 3.7 mmol/L (3.5-5.1); PROTEIN TOTAL,TP 7.3 g/dL (6.4-8.2); SODIUM,NA 140.0 mmol/L (136-145)
[2024-12-04] MEDS: Iopamidol 755 Mg/ML 100 ML Bottle IVPUSH ONE (01:28)
[2024-12-04] MEDS: Amoxicillin/Clavulanate K 875-125 MG Tab PO ONE (02:39)
== END 2024-12-04 02:44 | disposition home or self-care (01) ==
LOC: MW.ED 22:40
DX: K52.9 Noninfective gastroenteritis and colitis, unspecified (principal); Z75.3 Unavailability and inaccessibility of health-care facilities; Z88.2 Allergy status to sulfonamides; Z79.899 Other long term (current) drug therapy; Z90.49 Acquired absence of other specified parts of digestive tract; Z90.710 Acquired absence of both cervix and uterus
CPT/HCPCS: 36415; 74177; 80053; 81001; 81025; 83690; 83735; 85025; 96361; 96374; 96375; 99284; A9270; J1885; J2405; J7030; Q9967; 99282